=== PATIENT | male | born 1955 ===

== ENCOUNTER → 2018-05-28 17:41 | Outpatient (REF) | payer OTHER, SELFPAY ==
[2018-05-28 17:44] LABS: Bacteria Urine None Seen; RBC Urine None Seen (0-5/HPF)
[2018-05-28 19:04] LABS: Appearance Urine UA CLEAR; Bilirubin Urine UA NEGATIVE (NEGATIVE); Color Urine UA YELLOW; Glucose Urine UA NEGATIVE (Normal); Ketones Urine UA NEGATIVE (NEGATIVE); Leukocyte Esterase Urine UA NEGATIVE (NEGATIVE); Nitrite Urine UA Negative (Negative); Occult Blood Urine UA NEGATIVE (Negative); Protein Urine UA NEGATIVE (Negative); Urobilinogen Urine UA 0.2 E.U./dL (0.2)
[2018-05-28 19:34] LABS: Culture Indicated Urine Cult Not Indicated; Squamous Epithelial Cell Urine 0-1 /HPF; WBC Urine 0-1/HPF (0-5/HPF)
== END ==
LOC: LAB 17:41
PROVIDERS: Visit Provider Family Medicine
DX: N39.0 Urinary tract infection, site not specified (principal)
CPT/HCPCS: 81001; 87086

== ENCOUNTER → 2018-07-03 19:35 | Outpatient (REF) | payer OTHER, SELFPAY ==
[2018-07-03 20:18] LABS: BUN Creatinine Ratio 27.8 (6-22); Blood Urea Nitrogen 25 mg/dL (9-20); Carbon Dioxide 29 mmol/L (22-32); Chloride 100 mmol/L (98-107); Estimated Glomerular Filt Rate > 60.0 mL/min (>60); Glucose 83 mg/dL (80-110); HEMOLYSIS < 15 (0-50); Magnesium 2.4 mg/dL (1.6-2.3); Potassium 4.2 mmol/L (3.4-5.1); Sodium 141 mmol/L (137-145)
[2018-07-04 14:50] LABS: Add Manual Diff / Slide Review NO; Basophils Percent Auto 0.8 % (0-2); Hemoglobin 12.4 g/dL (13.5-17.5); Lymphocytes Percent Auto 22.8 % (25-40); Mean Corpuscular HGB Conc 32.6 % (30-36); Mean Corpuscular Hemoglobin 32.6 PG (26-34); Mean Corpuscular Volume 99.9 fL (80-100); Monocytes Percent Auto 8.1 % (3-14); Neutrophils Absolute Auto 4200 /uL (3000-5900); Neutrophils Percent Auto 67.3 % (50-75); Platelet Count 422 X10^3/uL (150-400); Red Cell Distribution Width 14.5 % (11.6-14.8); White Blood Cell Count 6.3 X10^3/uL (4.5-11.0)
== END ==
LOC: LAB 19:35
PROVIDERS: Visit Provider Family Medicine
DX: D64.9 Anemia, unspecified (principal); R53.1 Weakness; E88.81 Metabolic syndrome and other insulin resistance
CPT/HCPCS: 36415; 80048; 83735; 85025